=== PATIENT | female | born 1935 | race Caucasian/White ===

== ENCOUNTER → 2018-06-21 | Day surgery (SDC) | payer OTHER, MEDICARE | END | disposition home or self-care (01) | LOC: JRADIR 11:53 | PROVIDERS: ATTEND Internal Medicine | PROC: 02HV33Z Insertion of Infusion Device into Superior Vena Cava, Percutaneous Approach (ICD-10-PCS; principal; 2018-06-21) | PROC: B518ZZA Fluoroscopy of Superior Vena Cava, Guidance (ICD-10-PCS; 2018-06-21) | DX: L03.115 Cellulitis of right lower limb (principal); R78.81 Bacteremia; B96.20 Unspecified Escherichia coli [E. coli] as the cause of diseases classified elsewhere; E11.9 Type 2 diabetes mellitus without complications; I10 Essential (primary) hypertension | CPT/HCPCS: 36569; 36573; 77001-TC-FY; C1751 ==